=== PATIENT | female | born 1990 | race African-American/Black ===

== ENCOUNTER → 2021-01-23 01:10 | Outpatient (CLI) | payer SELFPAY ==
[2021-01-23 17:52] LABS: SARS-CoV-2 RNA PCR Negative
== END ==
PROVIDERS: PCP Internal Medicine; Visit Provider Internal Medicine Gastroenterology
DX: Z01.812 Encounter for preprocedural laboratory examination (principal); Z20.822 Contact with and (suspected) exposure to COVID-19
CPT/HCPCS: C9803; U0003; U0005

== ENCOUNTER 2021-01-27 03:00 | Day surgery (SDC) | payer OTHER, SELFPAY ==
[2021-01-18 14:21] VITALS: BMI 29.7
[2021-01-27 10:16] VITALS: BP 121/83; PULSE 72; RESP 18; TEMP 36.4; O2SAT 99; BMI 30.5
[2021-01-27] MEDS: LACTATED RINGERS 1,000 ML 150 ML IV CONT (10:36)
--- NOTE | 2021-01-27 10:40 | WPDANESEPPF ---
Anes - Initial Pre Proc Eval Procedure: Operation Date: 01/27/21 11:00 Proposed Procedures p Esophagogastroduodenoscopy - Damon Scott MD Date/Time: 01/27/21 10:40 Surgeon: Damon Scott MD Pre Op Diagnosis: GERD Patient Data Age: 30 Gender: F Height: 1.57 m Weight: 75.8 kg Last Vital Signs Temp 36.4 C 01/27/21 10:16 Pulse 72 01/27/21 10:16 Resp 18 01/27/21 10:16 BP 121/83 01/27/21 10:16 Pulse Ox 99 01/27/21 10:16 Allergies Allergy/AdvReac Type Severity Reaction Status Date / Time No Known Allergies Allergy Verified 01/27/21 10:11 Home Medications Medication Instructions Recorded Confirmed Type omeprazole 20 mg PO DAILY 01/18/21 01/27/21 History Patient hx anesthesia problems: none Family hx anesthesia problems: none [facility] Past Medical History Medical History (Updated 01/27/21 @ 10:40 by Tony Henderson MD) Obesity Social History Social History Alcohol use details: MODERATELY ON THE WEEKEND Living arrangements: alone Gender identity (if verbalized by the patient): Female Spiritual care concerns: No Anes - Eval Final PreProcedure Day of Procedure 01/27/21 10:40 Patient weight: obese Heart: regular rate and rhythm Lungs: clear to auscultation Airway: Mallampati scale class II Neurological: alert and oriented Last oral intake: >/= 8 hours ASA classification: II Emergent: no Anesthetic plan: proceed Anesthesia type and monitoring: general GIVS and standard monitoring Informed Consent: The patient's anesthetic plan and its attendant risks and benefits were discussed with the patient/family/POA. Questions were solicited and answers provided to the satisfaction of the patient/family/POA.
--- NOTE | 2021-01-27 10:53 | PM.HPGS ---
History of Present Illness History of Present Illness Consent: Risks, benefits, and alternatives have been discussed and questions answered. Patient agrees to proceed with procedure. Chief complaint: GERD Narrative: Chinyere Dean is a 30 year old female Who has been having discomfort in the left upper quadrant of her abdomen for the past couple of years. Generally this comes on after she eats. She has not have nausea vomiting heartburn or dysphagia. She is taking omeprazole 20 mg per day. Review of Systems Review of Systems: All systems reviewed & are unremarkable except as noted in HPI and below PMFSH Past Medical History Medical History Obesity Social History Social History Alcohol use details: MODERATELY ON THE WEEKEND Living arrangements: alone Gender identity (if verbalized by the patient): Female Spiritual care concerns: No Meds Home Medications and Allergies Home Medications Medication Instructions Recorded Confirmed Type omeprazole 20 mg PO DAILY 01/18/21 01/27/21 History Allergies Allergy/AdvReac Type Severity Reaction Status Date / Time No Known Allergies Allergy Verified 01/27/21 10:11 Vital Signs Vital Signs - 24 hr 01/27/21 10:16 Temperature 36.4 C Pulse Rate 72 Respiratory Rate 18 Blood Pressure 121/83 Pulse Oximetry 99 Exam Const: General: cooperative and alert Resp: Auscultation: clear to auscultation bilaterally Cardio: Rate: regular rate Rhythm: regular rhythm GI: Inspection: normal to inspection GI Palp: No abdominal tenderness and Yes No hepatosplenomegaly present Assessment and Plan Assessment and plan (1) Left upper quadrant pain: Code(s): R10.12 - Left upper quadrant pain Status: Acute Additional Plan EGD with possible biopsy or dilatation or cautery.
[2021-01-27] MEDS: BENZOCAINE (*SP) 60 ML SPRAY CAN (HURRICAINE) 1 SPRAY MUCOUS MEM (11:04)
[2021-01-27 11:14] VITALS: BP 86/57; PULSE 76; RESP 16; O2SAT 100
[2021-01-27 11:24] VITALS: BP 103/63; PULSE 73; RESP 20; O2SAT 100
[2021-01-27 11:34] VITALS: BP 104/70; PULSE 67; RESP 22; O2SAT 98
== END 2021-01-27 11:43 | disposition home or self-care (01) ==
PROVIDERS: PCP Internal Medicine; Visit Provider Internal Medicine Gastroenterology
PROC: 0DJ08ZZ Inspection of Upper Intestinal Tract, Via Natural or Artificial Opening Endoscopic (ICD-10-PCS; CPT 43235; principal; 2021-01-27 11:00)
DX: R10.12 Left upper quadrant pain (principal); K21.9 Gastro-esophageal reflux disease without esophagitis; E66.9 Obesity, unspecified; Z68.30 Body mass index [BMI] 30.0-30.9, adult
CPT/HCPCS: 43239; 87081; J2704; J7120

== ENCOUNTER 2022-11-30 09:49 | Outpatient (CLI) | payer BC, MEDICAID, SELFPAY ==
--- NOTE | ~2022-11-30 | US_ITS ---
EXAMINATION: US OB <=14 wk fetus w TV DATE: 11/30/2022 11:56 INDICATION: Gestational dating. viability. TECHNIQUE: Real-time transabdominal and transvaginal obstetric ultrasound. FINDINGS: No prior studies for comparison. The uterus measures 9.7 x 6 x 8.1 cm. There is an intrauterine gestational sac, with pole ident ified. The crown rump length measures 1.68 cm, which correlates with a estimated gestational age of 8 weeks 1 day. heart tones are identified measuring 171 BPM. There is a uterine fibroid at th e fundus measuring 4.7 cm. The ovaries are within normal limits. IMPRESSION: 1. SL IUP with an EGA of 8 weeks, 1 days (EDC by current ultrasound of 07/11/2023). 2: Uterine fibroid measuring 4.7 cm at the fundus. Reviewed, dictated and finalized at location [] IMPRESSION: 1. SL IUP with an EGA of 8 weeks, 1 days (EDC by current ultrasound of ). 2: Uterine fibroid measuring 4.7 cm at the fundus.
== END 2022-11-30 09:50 | disposition home or self-care (01) ==
PROVIDERS: Visit Provider Registered Nurse
DX: Z34.91 Encounter for supervision of normal pregnancy, unspecified, first trimester (principal); Z3A.08 8 weeks gestation of pregnancy; D25.9 Leiomyoma of uterus, unspecified
CPT/HCPCS: 76801; 76817

== ENCOUNTER 2023-03-17 16:11 | Observation (INO) | payer BC, MEDICAID, SELFPAY ==
--- NOTE | ~2023-03-17 | US_ITS ---
EXAMINATION: 1. US OB limited 2. US OB transvaginal DATE: 03/17/2023 17:45 INDICATION: Abdominal pain. Second trimester. TECHNIQUE: Real-time transabdominal and transvaginal ultrasound of the pelvis was performed. COMPARISON: Ultrasound 08/02/2022 FINDINGS: Transabdominal images demonstrate is a single fetus in breech presentation. The placenta is anterior . heart rate is 150 beats per minute (bpm). The amniotic fluid index is 17.8 cm cm, which is no rmal. There is a 5.8 cm uterine fibroid. Transvaginal images demonstrate a cervical length of 4.1 cm, which is normal. IMPRESSION: 1. Single living fetus in breech presentation. 2. Uterine fibroid. Reviewed, dictated and finalized at location E. IMPRESSION: 1. Single living fetus in breech presentation. 2. Uterine fibroid.
[2023-03-17 16:40] VITALS: BMI 35.0
--- NOTE | 2023-03-17 16:40 | LDADM ---
This patient, Chinyere Dean, was admitted to OB Post 116 on 03/17/23 at 16:11. Plans for labor, pain management and were discussed with patient. Patient/family oriented to hospital policies and general routines including ID bracelet, bed and alarms, visiting hours, pain management, procedures, bathroom and other care routines, personal items, smoking policy, room service/diet and guest tray routines, infant security routines, and visiting hours. Patient/Family are encouraged to report perceived risks to care and to ask questions if they do not understand what they are told or what they should do. See OBIX for further documentation.
[2023-03-17 16:46] VITALS: BP 109/71; PULSE 90
--- NOTE | 2023-03-17 17:02 | PC.NURSE ---
Dr. Jimenez notified of patient's symptoms and NST. Provider viewed at home. Orders received to give 1g Tylenol and ultrasound of cervical length and THEO.
--- NOTE | 2023-03-17 17:11 | PC.NURSE ---
Patient declines tylenol at this time.
--- NOTE | 2023-03-17 18:06 | PC.NURSE ---
Dr. Jimenez notified of ultrasound results. Okay to discharge.
--- NOTE | 2023-03-20 09:07 | PM.OBTRLD ---
OB - Triage/Final Diagnosis Visit Information Comments/Additional reasons for admission: I have assessed the risk for this patient, Chinyere Christian Dean, and determined that she would benefit from observation care. Final Diagnosis (1) Abdominal pain affecting : Code(s): O26.899 - Other specified related conditions, unspecified trimester; R10.9 - Unspecified abdominal pain Status: Acute (2) Uterine fibroid: Code(s): D25.9 - Leiomyoma of uterus, unspecified Status: Acute
== END 2023-03-17 18:18 | disposition home or self-care (01) ==
PROVIDERS: Admitting Provider Obstetrics & Gynecology; Visit Provider Obstetrics & Gynecology
DX: O26.893 Other specified pregnancy related conditions, third trimester (principal); R10.9 Unspecified abdominal pain; O34.12 Maternal care for benign tumor of corpus uteri, second trimester; Z3A.23 23 weeks gestation of pregnancy
CPT/HCPCS: 76815; 76817; G0378; G0379

== ENCOUNTER 2023-07-12 16:47 | Inpatient (IN) | payer MEDICAID, SELFPAY ==
[2023-07-12] VITALS (7 sets, daily range): BP systolic 118–146; BP diastolic 47–93; PULSE 104–110; RESP 16; TEMP 36.2–36.3; O2SAT 99; BMI 36.6
--- NOTE | 2023-07-12 17:28 | LDADM ---
This patient, Chinyere Dean, was admitted to Labor/Delivery/Recovery 103 on 07/12/23 at 16:47. Plans for labor, pain management and were discussed with patient. Patient/family oriented to hospital policies and general routines including ID bracelet, bed and alarms, visiting hours, pain management, procedures, bathroom and other care routines, personal items, smoking policy, room service/diet and guest tray routines, security routines, and visiting hours. Patient/Family are encouraged to report perceived risks to care and to ask questions if they do not understand what they are told or what they should do. See OBIX for further documentation.
[2023-07-12 17:31] LABS: Basophils Percent Auto 0.4 % (0.2-1.2); Eosinophils Absolute Auto 0.1 K/mm3 (0-0.3); Eosinophils Percent Auto 0.5 % (0-4.4); Hematocrit 36.9 % (37.0-47.0); Hemoglobin 11.8 g/dL (12.0-15.0); Immature Granulocyte Absolute 0.22 K/mm3 (0.00-0.031); Immature Granulocyte Percent A 2.2 % (0-0.5); Lymphocytes Absolute Auto 1.62 K/mm3 (0.9-3.2); Lymphocytes Percent Auto 16.6 % (18.3-44.2); Mean Corpuscular Hemoglobin 29.6 pg (26-34); Mean Corpuscular Volume 92.7 fl (80-100); Mean Platelet Volume 10.2 fl (7.4-10.4); Monocytes Absolute Auto 0.7 K/mm3 (0.1-0.6); Monocytes Percent Auto 6.6 % (2.6-8.5); Neutrophils Absolute Auto 7.2 K/mm3 (1.3-6.7); Neutrophils Percent Auto 73.7 % (45.5-73.1); Nucleated Red Blood Cells Perc 0.3 % (0.0-0.2); Platelet Count Result 235 k/mm3 (150-375); Red Blood Count 3.98 M/mm3 (4.2-5.4); White Blood Count 9.8 K/mm3 (4.5-10.0)
--- NOTE | 2023-07-12 20:57 | WPDANESEPPF ---
Anes - Initial Pre Proc Eval Procedure: Labor epidural Date/Time: 07/12/23 20:57 Surgeon: Saul Magallon MD Pre Op Diagnosis: Labor pain Pre Op Diagnosis: IOL Patient Data Age: 32 Gender: F Height: 1.57 m Weight: 90.9 kg Last Vital Signs Temp 36.2 C L 07/12/23 18:30 Pulse 106 H 07/12/23 19:01 Resp 16 07/12/23 17:50 BP 118/66 07/12/23 19:01 Pulse Ox 99 07/12/23 17:25 O2 Del Method Room Air 07/12/23 17:27 Allergies Allergy/AdvReac Type Severity Reaction Status Date / Time shellfish derived AdvReac Gastrointestinal Verified 07/12/23 17:35 Upset Home Medications Medication Instructions Recorded Confirmed Type prenat.vits,lauren,coo-[id number]-nllhc 1 tablet PO DAILY 09/02/22 07/12/23 History ferrous sulfate 325 mg (65 mg 325 mg PO DAILY 04/20/23 07/12/23 History iron) tablet Laboratory Tests 07/12/23 17:06 WBC 9.8 K/mm3 (4.5-10.0) RBC 3.98 L M/mm3 (4.2-5.4) Hgb 11.8 L g/dL (12.0-15.0) Hct 36.9 L % (37.0-47.0) MCV 92.7 fl (80-100) MCH 29.6 pg (26-34) MCHC 32.0 g/dl (32-36) RDW 15.0 H % (11.5-14.5) Plt Count 235 k/mm3 (150-375) MPV 10.2 fl (7.4-10.4) Immature Gran % (Auto) 2.2 H % (0-0.5) Neut % (Auto) 73.7 H % (45.5-73.1) Lymph % (Auto) 16.6 L % (18.3-44.2) [place] % (Auto) 6.6 % (2.6-8.5) Eos % (Auto) 0.5 % (0-4.4) Baso % (Auto) 0.4 % (0.2-1.2) Lymph # (Auto) 1.62 K/mm3 (0.9-3.2) [place] # (Auto) 0.7 H K/mm3 (0.1-0.6) Eos # (Auto) 0.1 K/mm3 (0-0.3) Baso # (Auto) 0.0 K/mm3 (0.0-0.1) Abs Immat Gran (auto) 0.22 H K/mm3 (0.00-0.031) Absolute Neuts (auto) 7.2 H K/mm3 (1.3-6.7) Absolute Nucleated RBC 0.0 K/mm3 (0.0-0.012) Nucleated RBC % 0.3 H % (0.0-0.2) RPR Pending Blood Type O Positive Antibody Screen Negative Patient hx anesthesia problems: none Family hx anesthesia problems: none Results Review: All pre-operative results and documents have been reviewed as part of the pre-operative evaluation. [facility] Past Medical History Medical History Fibroid Obesity Family History Family History Sibling Alcoholism Mother Diabetes mellitus Hypertension Social History Social History Smoking status: Never smoker Alcohol intake: never Alcohol use details: Not since Substance use: never Do You Feel Safe in your Home?: Yes Lack of Transportation: No Lack of Food: Never True Current Housing: I Have Housing Concerned About Future Housing: No Difficulty Paying Gas/Electric Bills: No Difficulty Paying for Meds: No Currently Unemployed: No Education: Master's Degree or Higher Difficulty w/ Childcare or Family Care: No Living arrangements: with family Occupation/Education: occupation Gender identity (if verbalized by the patient): Female Sexual Orientation (if Verbalized by the Patient): Straight or Heterosexual Spiritual care concerns: No Agree to blood products: Yes Anes - Eval Final PreProcedure Day of Procedure 07/12/23 20:57 Results Review: All pre-operative results and documents have been reviewed as part of the pre-operative evaluation. Informed Consent: The patient's anesthetic plan and its attendant risks and benefits were discussed with the patient/family/POA. Questions were solicited and answers provided to the satisfaction of the patient/family/POA.
[2023-07-12] MEDS: DEXTROSE 5%/LACTATED RINGERS 1,000 ML 125 ML IV CONT (21:50)
[2023-07-13] VITALS (231 sets, daily range): BP systolic 58–214; BP diastolic 25–181; PULSE 25–236; TEMP 36.2–38.7; O2SAT 74–100
[2023-07-13] MEDS: DEXTROSE 5%/LACTATED RINGERS 1,000 ML 125 ML IV CONT ×2 (05:03→12:41)
[2023-07-13] MEDS: OXYTOCIN 30 UNITS/NS 500 ML 30 UNITS/500 ML BAG IV CONT (09:19)
--- NOTE | 2023-07-13 12:25 | PM.IMHP ---
H&P: HPI History of Present Illness Date/Time: 07/13/23 12:25 Chief Complaint: Medical induction of labor Narrative: She is a 32 y/o G1 at 40 weeks by LMP consistent with first trimester ultrasound. Presents for MIL. PNC significant for 4.5 cm ant fundal fibroid. She has been getting serial ultrasounds for growth. Labs reviewed. GBS neg. Review of Systems Review of Systems: All systems reviewed & are unremarkable except as noted in HPI and below Constitutional: Constitutional: Reports no additional constitutional complaints and Denies headache(s) Eyes: Eyes: Denies spots in vision ENT: Reports system reviewed and no additional complaints, except as documented and Denies headache(s) Cardiovascular: Cardiovascular: Denies chest pain and Denies dyspnea Respiratory: Respiratory: Denies dyspnea Gastrointestinal: Gastrointestinal: Reports no additional gastrointestinal complaints Genitourinary: Genitourinary: Reports amenorrhea Musculoskeletal: Musculoskeletal: Reports no additional musculoskeletal complaints Integumentary/Breasts: Skin/Breast: Denies breast mass and Denies rash Neurologic: Denies headache(s) Psychiatric: Psychiatric: Reports no additional psychiatric complaints [facility] Past Medical History Medical History Fibroid Obesity Family History Family History Sibling Alcoholism Mother Diabetes mellitus Hypertension Social History Social History Smoking status: Never smoker Alcohol intake: never Alcohol use details: Not since Substance use: never Do You Feel Safe in your Home?: Yes Lack of Transportation: No Lack of Food: Never True Current Housing: I Have Housing Concerned About Future Housing: No Difficulty Paying Gas/Electric Bills: No Difficulty Paying for Meds: No Currently Unemployed: No Education: Master's Degree or Higher Difficulty w/ Childcare or Family Care: No Living arrangements: with family Occupation/Education: occupation Gender identity (if verbalized by the patient): Female Sexual Orientation (if Verbalized by the Patient): Straight or Heterosexual Spiritual care concerns: No Agree to blood products: Yes Meds Home Medications and Allergies Home Medications Medication Instructions Recorded Confirmed Type prenat.vits,lauren,agl-pqwh-rdjou 1 tablet PO DAILY 09/02/22 07/12/23 History ferrous sulfate 325 mg (65 mg 325 mg PO DAILY 04/20/23 07/12/23 History iron) tablet Allergies Allergy/AdvReac Type Severity Reaction Status Date / Time shellfish derived AdvReac Gastrointestinal Verified 07/12/23 17:35 Upset Vital Signs Vital Signs - 24 hr 07/12/23 17:27 07/12/23 17:25 07/12/23 17:50 Temperature 97.3 F L Pulse Rate 104 H Respiratory Rate 16 Blood Pressure 130/77 Pulse Oximetry 99 Oxygen Delivery Room Air 07/12/23 18:00 07/12/23 18:30 07/12/23 19:01 Temperature 97.2 F L Pulse Rate 110 H 106 H Respiratory Rate Blood Pressure 135/93 H 118/66 Pulse Oximetry Oxygen Delivery 07/12/23 22:30 07/12/23 23:59 07/13/23 00:01 Temperature 97.3 F L Pulse Rate 107 H 114 H Respiratory Rate Blood Pressure 146/47 H 125/47 L Pulse Oximetry Oxygen Delivery 07/13/23 00:30 07/13/23 04:14 07/13/23 04:15 Temperature 98.2 F Pulse Rate 93 Respiratory Rate Blood Pressure 132/80 Pulse Oximetry 99 Oxygen Delivery 07/13/23 04:30 07/13/23 08:18 07/13/23 08:30 Temperature 98.8 F Pulse Rate 88 91 Respiratory Rate Blood Pressure 125/69 117/77 Pulse Oximetry Oxygen Delivery 07/13/23 09:00 07/13/23 09:30 07/13/23 10:00 Temperature 97.5 F L Pulse Rate 100 101 H 111 H Respiratory Rate Blood Pressure 129/67 116/75 129/87 Pulse Oximetry Oxygen Delivery 0
--- NOTE | 2023-07-13 12:31 | P.PNOB_ITS ---
OB - PN: Subj Subjective Date/time seen: 07/13/23 0735 Interval history: fht 140 cat 1 AROM cervix 1.5/60/-2, thick meconium. OB - PN: Obj Data Labs 07/12/23 17:06 Labs: Laboratory Results - last 24 hr 07/12/23 17:06 WBC 9.8 RBC 3.98 L Hgb 11.8 L Hct 36.9 L MCV 92.7 MCH 29.6 MCHC 32.0 RDW 15.0 H Plt Count 235 MPV 10.2 Immature Gran % (Auto) 2.2 H Neut % (Auto) 73.7 H Lymph % (Auto) 16.6 L [place] % (Auto) 6.6 Eos % (Auto) 0.5 Baso % (Auto) 0.4 Lymph # (Auto) 1.62 [place] # (Auto) 0.7 H Eos # (Auto) 0.1 Baso # (Auto) 0.0 Abs Immat Gran (auto) 0.22 H Absolute Neuts (auto) 7.2 H Absolute Nucleated RBC 0.0 Nucleated RBC % 0.3 H Blood Type O Positive Antibody Screen Negative OB - PN A/P Time Spent With Patient Time: Total time spent is greater than 50% in coordination of care (as documented) at patient's floor/unit and/or counseling patient:
[2023-07-13] MEDS: PHENYLEPHRINE 1,000 MCG/10 ML SYRINGE 100 MCG IV PUSH ×3 (13:19→14:06)
[2023-07-13] MEDS: LACTATED RINGERS 1,000 ML 125 ML IV CONT ×2 (14:08→17:24)
[2023-07-13 15:45] LABS: Rapid Plasma Reagin Non-Reactive (NonReactive)
[2023-07-13] MEDS: ONDANSETRON INJ 4 MG/2 ML VIAL IV PUSH (19:26)
[2023-07-13] MEDS: AMPICILLIN 2 GM/NS 100 ML 2 GM/100 ML BAG IVPB (21:41)
[2023-07-13] MEDS: ACETAMINOPHEN 500 MG TABLET 1000 MG PO (21:43)
[2023-07-13] MEDS: OXYTOCIN 30 UNITS/NS 500 ML 30 UNITS/500 ML BAG 125 UNITS IV CONT (23:51)
[2023-07-13] MEDS: miSOPROStol 200 MCG TABLET 800 MCG RECTAL (23:55)
[2023-07-14] VITALS (32 sets, daily range): BP systolic 78–166; BP diastolic 51–101; PULSE 94–150; RESP 16–18; TEMP 36.7–37.2; O2SAT 95–100
--- NOTE | 2023-07-14 00:08 | PM.OBPRVD ---
OB - Vaginal Delivery Note Procedure Delivery date: 07/14/23 Events: Other (Fundal fibroid) Intrapartal Events: Chorioamnionitis Induction method: Per Pitocin Protocol Delivery augmentation: Rupture of Membranes and Pitocin Delivery monitor: External FHT and Internal Uterine Route of delivery: Laceration Description: Perineal - 2nd Degree and Vaginal (bilateral vaginal laceration) Delivery repair: vicryl (3.0 vicryl) Specimen: Yes (placenta and cord) Quantitative Blood Loss (ml): 350 Anesthesia type: Epidural Disposition: Floor Complications: No immediate complications Narrative: She was admitted for [facility] for postdates. She did not get cervidil due to intermittent late decelerations. The am she had AROM thick meconium. Pitocin was subsequently started. She did get an epidural on request. IUPC was placed for improved assessment of contractions. She had an episode of late decelerations and also had hypotension after epidural. Pitocin was stopped also. Once blood pressures improved then decelerations resolved. Tracing Cat 2 and pitocin restarted. She did develop a fever of 101 and Ampicillin and Tylenol started. tracing showed tachycardia. She did progress to complete. She pushed for approximately 30 min and delivered a male . Peds available due to thick meconium. was placed on maternal abdomen and cord doubly clamped and cut and then placed at warmer. Cord blood and gases obtained. Pitocin started. Placenta delivered spontaneously and intact. She sustained bilateral vaginal tears and second degree perineal laceration repaired with 3.0 vicryl. She was getting intermittent hypotonia and clot cleared from lower uterine segment twice. She was given Cytotec 800mcg rectally. Bleeding improved. Will add gent clinda /amp . Baby Date of : 07/13/23 Time of : 22:23 Weeks of gestation at delivery: 40 Infant gender: Male Weight (pounds): 8 Weight (ounces): 12 presentation: vertex position: Left Occiput Anterior Placenta delivery description: Expressed Cord Vessel Description: 3 Vessels and Clamped/Cut score one minute: 2 score five minutes: 8 score ten minutes: 9 AMG Delivery Billing Delivery Delivery: Delivery Charge
[2023-07-14 01:14] LABS: Estimated CRCL calculation 139 ml/min; Estimated Glomerular Filt Rate > 60
[2023-07-14] MEDS: GENTAMICIN SULFATE INJ 455 MG in DEXTROSE 5% 100 ML 100 MG IVPB (01:24)
[2023-07-14] MEDS: WITCH HAZEL 40 PADS 1 PAD TOPICAL (02:48)
[2023-07-14] MEDS: BENZOCAINE 20% AER SPR (*SP) 56 GM CAN 1 SPRAY TOPICAL (02:48)
[2023-07-14] MEDS: IBUPROFEN 600 MG TABLET PO ×3 (02:49→22:54)
--- NOTE | 2023-07-14 02:55 | PC.NURSE ---
Patient transferred to post room # 285 via (W/C ). Support person present. Oriented to unit, room, information board, rooming in, admission packet and security measures. Patient verbalizes understanding.
[2023-07-14] MEDS: CLINDAMYCIN 900 MG/D5W 50 ML 900 MG/50 ML PIGGYBACK 50 MG IVPB ×3 (03:54→21:33)
[2023-07-14] MEDS: ACETAMINOPHEN 325 MG TABLET 650 MG PO (07:57)
[2023-07-14] MEDS: MULTIVIT/MIN/PREN/FOL AC/IRON TABLET 1 TAB PO (07:57)
--- NOTE | 2023-07-14 10:24 | WPDANLDPN2 ---
Anes-Prog Note L&D Date/Time: 07/14/23 10:24 Comfortable throughout: labor and delivery Neuraxial method: epidural Epidural/Spinal procedure site: clean & non-tender Neuro status: Neuro function grossly intact. Cardiovascular status: normal Respiratory status: normal Airway patency: baseline Mental status: baseline Post-Op hydration status: normal Vital Signs: Last Vital Signs Temp 36.7 C 07/14/23 07:55 Pulse 101 H 07/14/23 07:55 Resp 18 07/14/23 07:55 BP 113/66 07/14/23 07:55 Pulse Ox 100 07/14/23 07:55 O2 Del Method Room Air 07/14/23 03:12 Pain score (VAS): 3/10 I/O: Intake & Output 07/13/23 07/14/23 07/14/23 23:59 07:59 15:59 Intake Total 1000 Balance 1000 Post-procedural complaints: none and pruritis mild, no treatment Patient feedback: Patient satisfied with anesthetic care.
--- NOTE | 2023-07-14 12:08 | PM.OBPNVD ---
OB - PN: Subj Subjective Date/time seen: 07/14/23 12:08 Patient comments: tolerating diet and other (having moderate perineal pain) [place] baby status: doing well [place] feeding status: pumping and bottle feeding Narrative: PP day 1 Doing well. Reports some vaginal pain, taking motrin and tylenol. No fevers. Will continue abx through this evening. Will get H&H today. OB - PN: Obj Data Labs 07/12/23 17:06 07/14/23 00:31 Labs: Laboratory Results - last 24 hr 07/12/23 07/14/23 17:06 00:31 Creatinine 0.50 L Estim Creat Clear Calc 139 Estimated GFR > 60 RPR Non-reactive OB - PN A/P Plan Plan: routine care Comments: PP day 1. Doing well. Will order [place] for pain management. Recommend sitz bath prn. Will d/c antibiotics after evening dose. H&H today. Time Spent With Patient Time: Total time spent is greater than 50% in coordination of care (as documented) at patient's floor/unit and/or counseling patient: Review of Systems Review of Systems: All systems reviewed & are unremarkable except as noted in HPI and below Cardiovascular: Cardiovascular: Reports no additional cardiovascular complaints Respiratory: Respiratory: Reports no additional respiratory complaints Exam Const: General: cooperative, comfortable and no acute distress Resp: Effort & Inspection: normal respiratory effort and able to speak in complete sentences GI: Inspection: normal to inspection GI Palp: No abdominal tenderness Other: Fundus palpated below U. Non tender : External Female Exam: normal external appearance Other: Fundus below U, firm Extrem: General: normal to inspection, full ROM, no calf tenderness and edema (1+ non pitting) Psych: Affect: normal affect
[2023-07-14 12:27] LABS: Hematocrit 32.8 % (37.0-47.0); Hemoglobin 10.7 g/dL (12.0-15.0)
[2023-07-14 12:44] LABS: Gentamicin Random 0.9 ug/mL (5.0-12.0)
[2023-07-14] MEDS: HYDROcodone/acetaminophen (*CRX) 5-325 MG TABLET 1 TAB PO ×2 (13:54→22:55)
[2023-07-15] MEDS: IBUPROFEN 600 MG TABLET PO (05:08)
--- NOTE | 2023-07-15 07:52 | PM.OBDSVD ---
DS: Admitting Diagnosis Discharge Date 07/15/2023 Admitting Diagnosis DS: Discharge Diagnosis Discharge Diagnosis (1) , delivered: Code(s): O80 - Encounter for full-term uncomplicated delivery Status: Acute OB - DS: Summary Hospital Course Hospital Course: S: Patient tolerating regular diet and activity without difficulty. is going well though slow. Denies fever chills or significant amount of abdominal pain or abnormal bleeding, foul-smelling discharge. O: Vital signs stable and afebrile Abdomen: Positive bowel sounds soft fundus nontender A: Status post vaginal delivery with chorioamnionitis, resolved. P: Discharge home with general instructions, as well as specific instructions due to infectious morbidity during labor OB Procedures : None OB Procedures Intrapartum: Spontaneous Vag Delivery and Other ( chorioamnionitis) OB Procedures: : None Peripartum Data Laceration Description: Perineal - 2nd Degree and Vaginal (bilateral vaginal laceration) Time Spent with Patient Time attestation: Total time spent providing and/or coordinating discharge services: DS: Data Data Completed and Pending Labs on day of discharge: Labs from last 24 hours 07/14/23 12:14 Hgb 10.7 L Hct 32.8 L Random Gentamicin 0.9 L Discharge Plan Discharge Attending physician on discharge: Saul Magallon Consulting providers: Jose Alberto Pink Discharging Clinician: Nguyễn Amaya Patient Disposition: Home, Self-Care Activity: october shower Diet: as tolerated Patient Instructions: Antibiotic Form, Vaginal Delivery (DC) Stand Alone Forms: General Discharge Information Follow-up/Referrals: Saul Magallon MD [Physician] - Discharge Medications: New hydrocodone-acetaminophen 5-325 mg Tablet 1 tablet PO Q4H PRN (Reason: Pain Rated 4-6) Qty: 12 0RF ibuprofen 600 mg Tablet 600 mg PO Q6H PRN (Reason: Cramping) Qty: 20 0RF Continued prenat.vits,lauren,hfp-rele-ccnow Tablet 1 tablet PO DAILY ferrous sulfate 325 mg (65 mg iron) tablet 325 mg PO DAILY Date of admission: 07/12/23 16:47 Primary Care Provider: PHYSICIAN,[facility] Admitting Provider: Saul Magallon Attending physician on admission: Saul Magallon Condition: Stable
[2023-07-15 08:00] VITALS: BP 131/85; PULSE 85; RESP 16; TEMP 36.2; O2SAT 100
[2023-07-15] MEDS: MULTIVIT/MIN/PREN/FOL AC/IRON TABLET 1 TAB PO (09:34)
[2023-07-15] MEDS: HYDROcodone/acetaminophen (*CRX) 5-325 MG TABLET 1 TAB PO ×2 (09:34→13:35)
[2023-07-15] MEDS: DOCUSATE SODIUM 100 MG CAPSULE PO ×2 (09:35→16:12)
--- NOTE | 2023-07-15 12:50 | PC.NURSE ---
Patient viewed the discharge video Mother & Baby Care, The First Two Weeks . Patient was given the opportunity and encouraged to ask questions. Patient verbalized understanding of information shared and has been given the mother/baby guide for home reference.
[2023-07-17 14:10] VITALS: BP 128/89; PULSE 78; RESP 18; TEMP 36.9; O2SAT 100
== END 2023-07-15 16:57 | disposition home or self-care (01) | DRG 560 ==
LOC: ANHOB2 07-15 11:24 → ANHLDR 07-17 12:18 → ANHOB2 07-17 12:18
PROVIDERS: Admitting Provider Obstetrics & Gynecology; Visit Provider Obstetrics & Gynecology
DX: O48.0 Post-term pregnancy (principal); Z37.0 Single live birth; Z3A.40 40 weeks gestation of pregnancy; O41.1230 Chorioamnionitis, third trimester, not applicable or unspecified; O70.1 Second degree perineal laceration during delivery; O77.0 Labor and delivery complicated by meconium in amniotic fluid; O36.8330 Maternal care for abnormalities of the fetal heart rate or rhythm, third trimester, not applicable or unspecified; O62.2 Other uterine inertia; O34.13 Maternal care for benign tumor of corpus uteri, third trimester; D25.9 Leiomyoma of uterus, unspecified
CPT/HCPCS: 36415; 80170; 82565; 85014; 85018; 85025; 86592; 86850; 86900; 86901; 88307; A9270; J0290; J1580; J2371; J2405; J2590; J2795; J7120; J7121

== ENCOUNTER 2024-05-21 16:24 | Outpatient (CLI) | payer OTHER, SELFPAY ==
--- NOTE | ~2024-05-21 | US_ITS ---
EXAMINATION: US OB <=14 wk fetus w TV INDICATION: N91.2 - Amenorrhea, unspecified TECHNIQUE: Sonography of the pelvis was performed by transabdominal technique. COMPARISON: None. RESULT: Uterus: 14.3 x 6.8 x 9.8 cm. Anteverted. Homogenous myometrium. Intrauterine gestational sac: Single present. Embryo: Single present. [place] rump length: 5.46 cm, corresponding gestational age 12 weeks, 0 days. Gestational heart rate: present 163 bpm. Subgestational hematoma: Absent . Right ovary: 4.9 x 1.7 x 2.0 cm. Vascular flow is present. No adnexal mass. Left ovary: 2.8 x 2.4 x 1.9 cm. Vascular flow is present. No adnexal mass. Pelvis free fluid: None. IMPRESSION: Single, live intrauterine gestation. Mild tachycardia to 163 BPM. Estimated Gestational Age: 12 weeks, 0 days by crown rump length. ISSA by ultrasound 12/03/2024. Reviewed, dictated and finalized at location K. [employer] [facility] IMPRESSION: Single, live intrauterine gestation. Mild tachycardia to 163 BPM. Estimated Gestational Age: 12 weeks, 0 days by crown rump length. ISSA by ultra sound 12/03/2024.
== END 2024-05-21 16:25 | disposition home or self-care (01) ==
LOC: ANHIMG 16:26
PROVIDERS: Visit Provider Nurse Practitioner Obstetrics & Gynecology
DX: N91.2 Amenorrhea, unspecified (principal); Z3A.12 12 weeks gestation of pregnancy
CPT/HCPCS: 76801; 76817

== ENCOUNTER 2024-08-28 11:00 | Outpatient (RCR) | payer BC, OTHER, SELFPAY ==
--- NOTE | 2024-07-19 13:20 | OPREHPOC ---
Outpatient Therapy Plan of Care This is a Multidisciplinary Plan of Care that may contain components documented by all disciplines (PT, OT, and ST.) PT Problem 1 PT Problem #1 Knowledge Deficit PT Goal 1 Goal / Goal Update 1. Patient will perform independent HEP Target Visit 2 PT Problem 2 PT Problem #2 Pain PT Goal 1 Goal / Goal Update 1. Patient will report pain 2/10 highest with cooking and cleaning tasks 2. Patient able to do normal activities without taking rest breaks from pain Target Visit 4 PT Problem 3 PT Problem #3 Impaired Strength PT Goal 1 Goal / Goal Update 1. Hip abduction 5/5 alonzo to support spine as progresses
--- NOTE | 2024-07-19 13:20 | PTOPEVAL1 ---
Assessment and note entered by Miryam Mobley DPT Evaluation Information Assessment Status Evaluation ICD-10 Condition Codes (PT) Pain in low back M54.50,Weakness R53.1 Subjective Information Pt is almost 20 weeks . Is having some back pain that starts if she stands too long, squats down, or walks too far. Pain started about 2 months ago. Highest pain 5/10 and lowest 0/10. Is able to do her household activities but sits down to take breaks as needed. Sometimes gets pain in her posterior R knee but is not radiating down her whole leg. Denies n/t. This is patient's second , did have some pain with her first but much later in the . Returns to Dr. Magallon in a few weeks. Patient goal: get an exercise routine and help with the pain Reported Pain Level Pain Score 0: Self Report Assessment PT Clinical Summary The patient is approximately 20 weeks and presenting with low back pain. She presents with SIJ impairments and decreased hip strength which are contributing to her pain and difficulty with tasks requiring standing and walking. She will benefit from therapy to address pain in order to improve function as her progresses. Plan of Care Interventions Gait Training,Hot Pack/Cold Pack,Manual Therapy, Neuro Re-education,Patient/Caregiver Education, Therapeutic Activities,Therapeutic Exercise PT Services Indicated Yes Treatment Frequency and 2-4 visits in 2 months (based on patient's Duration schedule) These treatments will address the objective and functional deficits as defined above. The patient will be advanced safely and appropriately in order for the patient to progress towards his/her prior level of function. Additional exercises will be introduced and as well as a comprehensive home exercise program upon discharge, if needed, ?to ensure carryover of functional gains achieved in the clinic. This treatment plan has been reviewed and agreement upon by the patient.
--- NOTE | 2024-08-28 11:32 | OPREHPOC ---
Outpatient Therapy Plan of Care This is a Multidisciplinary Plan of Care that may contain components documented by all disciplines (PT, OT, and ST.) PT Problem 1 PT Problem #1 Knowledge Deficit PT Goal 1 Goal / Goal Update 1. Patient will perform independent HEP Target Visit 2 Progress Met PT Problem 2 PT Problem #2 Pain PT Goal 1 Goal / Goal Update 1. Patient will report pain 2/10 highest with cooking and cleaning tasks 2. Patient able to do normal activities without taking rest breaks from pain update 08/28/24 1. not met 2. met Target Visit 4 Progress Partially Met PT Problem 3 PT Problem #3 Impaired Strength PT Goal 1 Goal / Goal Update 1. Hip abduction 5/5 alonzo to support spine as progresses update 08/28/24 1. met on R, L to 4+/5 Target Visit 4 Progress Partially Met
--- NOTE | 2024-08-28 11:32 | PTOPPROGNS ---
Assessment and note entered by Miryam Mobley DPT Evaluation Information Assessment Status Progress ICD-10 Condition Codes (PT) Pain in low back M54.50,Weakness R53.1 Subjective Information Pt reports improvements with therapy and is able to stand for longer and do stairs at work with less difficulty. Highest pain 5/10 and lowest 0/10 . Is mostly noticing it rolling over in bed. Does have to take breaks during household activities but due to fatigue, not pain. Pt returns to OB next week. Pt is 25 weeks currently. Assessment PT Clinical Summary The patient has made good progress in therapy and reports decreased pain overall and improvements in her ability to navigate stairs at work. She demonstrates improved bilateral hip abduction strength. Due to her progress, patient would like to continue HEP independently at this time. She has been educated to follow up with PT if her pain increases over the next 2-4 weeks or her OB-OUTPATIENT COORDINATOR as needed. Plan of Care Interventions Gait Training,Hot Pack/Cold Pack,Manual Therapy, Neuro Re-education,Patient/Caregiver Education, Therapeutic Activities,Therapeutic Exercise PT Services Indicated No Treatment Frequency and hold therapy, pending discharge in 2-4 weeks Duration These treatments will address the objective and functional deficits as defined above. The patient will be advanced safely and appropriately in order for the patient to progress towards his/her prior level of function. Additional exercises will be introduced and as well as a comprehensive home exercise program upon discharge, if needed, ?to ensure carryover of functional gains achieved in the clinic. This treatment plan has been reviewed and agreement upon by the patient.
--- NOTE | 2024-09-25 09:23 | PTOPDC ---
Assessment and note entered by Miryam Mobley DPT Evaluation Information Assessment Status Discharge - Pt Not Present ICD-10 Condition Codes (PT) Pain in low back M54.50,Weakness R53.1 Subjective Information - Assessment PT Clinical Summary Patient has not needed to schedule further therapy - her case will be discharged this date. Plan of Care PT Services Indicated No
== END 2024-09-25 11:53 | disposition home or self-care (01) ==
LOC: ANHPT 11:00
PROVIDERS: Visit Provider Obstetrics & Gynecology
DX: O99.891 Other specified diseases and conditions complicating pregnancy (principal); M54.9 Dorsalgia, unspecified; M25.559 Pain in unspecified hip
CPT/HCPCS: 97110; 97112; 97140; 97161; 97530

== ENCOUNTER 2024-10-02 15:12 | Outpatient (RCR) | payer BC, MEDICAID, SELFPAY ==
[2024-10-02 16:14] VITALS: BP 122/66; PULSE 94
== END 2024-12-14 09:54 | disposition other institution (70) ==
LOC: ANHOBOP 15:12
PROVIDERS: Visit Provider Obstetrics & Gynecology
DX: O36.8330 Maternal care for abnormalities of the fetal heart rate or rhythm, third trimester, not applicable or unspecified (principal)
CPT/HCPCS: 59025

== ENCOUNTER 2024-11-27 11:15 | Inpatient (IN) | payer BC, MEDICAID, SELFPAY ==
[2024-11-27] VITALS (103 sets, daily range): BP systolic 95–180; BP diastolic 42–110; PULSE 25–130; RESP 16; TEMP 36.1–36.8; O2SAT 77–100; BMI 40.3
--- NOTE | 2024-11-27 11:54 | P.HP_ITS ---
H&P: HPI History of Present Illness Date/Time: 11/27/24 11:54 Chief Complaint: leaking of fluid Narrative: patient is a 34-year-old at 38 weeks with an EDC of 12/07/2024. Presented with complaints of leaking of fluid, clear at 9:30 a.m. Spontaneous rupture of membranes confirmed. Clear. Irregular contractions. course significant for advanced maternal age also history of short interval has had normal growth. Review of Systems Review of Systems: All systems reviewed & are unremarkable except as noted in HPI and below Constitutional: Constitutional: Reports no additional constitutional complaints and Denies headache(s) Eyes: Eyes: Denies spots in vision ENT: Reports system reviewed and no additional complaints, except as documented and Denies headache(s) Cardiovascular: Cardiovascular: Denies chest pain and Denies dyspnea Respiratory: Respiratory: Denies dyspnea Gastrointestinal: Gastrointestinal: Reports no additional gastrointestinal complaints Genitourinary: Genitourinary: Reports amenorrhea Musculoskeletal: Musculoskeletal: Reports no additional musculoskeletal complaints Integumentary/Breasts: Skin/Breast: Denies breast mass and Denies rash Neurologic: Denies headache(s) Psychiatric: Psychiatric: Reports no additional psychiatric complaints [facility] Past Medical History Medical History Fibroid Obesity Family History Family History Sibling Alcoholism Mother Diabetes mellitus Hypertension Social History Social History Smoking status: Never smoker Alcohol intake: never Alcohol use details: Not since Substance use: never Do You Feel Safe in your Home?: Yes Lack of Transportation: No Lack of Food: Never True Current Housing: I Have Housing Concerned About Future Housing: No Difficulty Paying Gas/Electric Bills: No Difficulty Paying for Meds: No Currently Unemployed: No Education: Master's Degree or Higher Difficulty w/ Childcare or Family Care: No Living arrangements: with family Occupation/Education: occupation Gender identity (if verbalized by the patient): Female Sexual Orientation (if Verbalized by the Patient): Straight or Heterosexual Spiritual care concerns: No Agree to blood products: Yes Meds Home Medications and Allergies Home Medications ?Medication ?Instructions ?Recorded ?Confirmed ?Type vitamin#30 30 mg iron-10 cap PO 05/30/24 11/26/24 History mg iron-folic acid 1 mg-omg3 capsule Allergies Allergy/AdvReac Type Severity Reaction Status Date / Time shellfish derived AdvReac Gastrointestinal Verified 11/26/24 13:56 Upset Exam Const: General: no acute distress Eyes: General: appearance normal, both eyes and all related structures Resp: Effort & Inspection: normal respiratory effort Cardio: Rate: regular rate GI: Other: Gravid no fundal tenderness no right upper quadrant pain : Other: Cervix 2/ 50/ -3 Skin: General skin exam: no rashes or lesions noted Neuro: Cognition (Neuro): normal cognition Extrem: General: normal to inspection Psych: Mental Status: mental status grossly normal Assessment and Plan Assessment and plan (1) Spontaneous rupture of membranes: Status: Acute Assessment and Plan: 1. Admit 2. Counseled on Pitocin augmentation.
[2024-11-27 12:01] LABS: Basophils Percent Auto 0.4 % (0.2-1.2); Eosinophils Percent Auto 0.5 % (0-4.4); Hematocrit 34.2 % (37.0-47.0); Hemoglobin 10.7 g/dL (12.0-15.0); Immature Granulocyte Absolute 0.06 K/mm3 (0.00-0.031); Immature Granulocyte Percent A 0.7 % (0-0.5); Lymphocytes Absolute Auto 1.66 K/mm3 (0.9-3.2); Lymphocytes Percent Auto 20.4 % (18.3-44.2); Mean Corpuscular HGB Conc 31.3 g/dl (32-36); Mean Corpuscular Hemoglobin 26.6 pg (26-34); Mean Corpuscular Volume 85.1 fl (80-100); Monocytes Absolute Auto 0.4 K/mm3 (0.1-0.6); Monocytes Percent Auto 4.4 % (2.6-8.5); Neutrophils Percent Auto 73.6 % (45.5-73.1); Platelet Count Result 284 k/mm3 (150-375); Red Blood Count 4.02 M/mm3 (4.2-5.4); Red Cell Distribution Width 15.6 % (11.5-14.5); White Blood Count 8.2 K/mm3 (4.5-10.0)
--- NOTE | 2024-11-27 12:37 | LDADM ---
This patient, Chinyere Dean, was admitted to Labor/Delivery/Recovery 106 on 11/27/24 at 11:15. Plans for labor, pain management and were discussed with patient. Patient/family oriented to hospital policies and general routines including ID bracelet, bed and alarms, visiting hours, pain management, procedures, bathroom and other care routines, personal items, smoking policy, room service/diet and guest tray routines, security routines, and visiting hours. Patient/Family are encouraged to report perceived risks to care and to ask questions if they do not understand what they are told or what they should do. See OBIX for further documentation.
[2024-11-27 12:54] LABS: OBXCEM ROM Plus Positive (Negative)
[2024-11-27 12:54] LABS: Syphilis IgG/IgM Antibody Non-Reactive (Nonreactive)
--- OUTSIDE RECORDS SUMMARY | 2024-11-27 13:24 | XMS_ITS | Clinical Summary ---
Author Organization [facility] Address [address] [place] [address] Care Team Providers Care Programmer Or Analyst Name Role Phone Unavailable Primary Care Provider Unavailabl e Source Comments [facility],non-owned Affiliates and Associated Physician Practices is amultiple site organization consisting of ambulatory clinics and hospital sitesin [place], [place], [place] and [place]. This disclosure is being madepursuant to the Care Everywhere program and may not contain all information available regarding this patient. Last updated 18.[facility] Allergies Active Allergy Reactions Criticality Noted Date Comments Shellfish Allergy Unknown 10/21/2024 Encounters Date Type Department Care Team Description 11/19/2024 1:45 PM CDT - 11/19/2024 11:59 PM CDT Hospital Encounter [facility] [address] [place] [id number] James Antonio MD Discharge Disposition: Home or Self Care 11/18/2024 Telephone [facility]ly [facility] [address] [place] [phone] Anni Samuel RN Future Appointment (Jeremías called to see if patient could get her NST tomorrow with her growth US for AMA requested by Leah Carballo NP. 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 Gender Identity Not on file Sexual Orientation Not on file Plan of Treatment Health Maintenance Due Date Last Done Comments PAP SMEAR 1990 HIV SCREENING 09/16/2003 DTAP/TDAP/TD VACCINES (1 - Tdap) 09/16/2007 HEPATITIS B VACCINE (1 of 3 - 19+ 3-dose series) 09/16/2007 COVID-19 VACCINE (2023-2 5 season) 2024 01/20/2021, 12/30/2020 DEPRESSION SCREENING 06/12/2024 OB-ONE HOUR GLUCOSE 08/31/2024 OB-TDAP CURRENT 09/07/20242022, 03/12/2020 OB-RHOGAM INJECTION 09/14/2024 OB-GROUP B STREP SCREEN 11/02/2024 INFLUENZA VACCINE (Season Ended) 2025 ZOSTER VACCINE (1 of 2) 2038 HEPATITIS C SCREENING Completed 05/18/2023 HIB VACCINE Aged Out No longer eligi ble based on patient's age to complete this topic HPV VACCINE Aged Out No longer eligi ble based on patient's age to complete this topic MENINGOCOCCAL (Group B) VACCINE SHARED DECISION-MAKING Aged Out No longer eligible based on patient's age to complete this topic MENINGOCOCCAL GROUPS A/C/Y/W VACCINE Aged Out No longer eligible b ased on patient's age to complete this topic PNEUMOCOCCAL VACCINE Aged Out No long er eligible based on patient's age to complete this topic Respiratory Syncytial Virus (RSV) Vaccine Pt: or over 60 yrs (No Doses Required) Completed Procedures Procedure Name Priority Date/Time Associated Diagnosis Comments SONOGRAM - COMPLETE Routine 11/19/2024 1 :52 PM CDT Multigravida of advanced maternal age in third trimester (HCC) Encounter for ultrasound to assess growth (HCC) 37 weeks gestation of (HCC) SONOGRAM - COMPLETE Routine 10/22/2024 1 :09 PM CDT Multigravida of advanced maternal age in third trimester (HCC) Encounter for ultrasound to assess growth ([facility]) Encounter for anatomic survey ([facility]) with 33 completed weeks gestation ([facility]) from Last 3 Months Results * SONOGRAM - COMPLETE (11/19/2024 1:52 PM CDT) Only the most recent of2 resultswithin the time period is included. Linked Results Indication ======== Transfer from [facility], Incomplete anatomy & follow-up growth AMA 34 years, Class I obesity History ====== OB History 2. Para 1 [id number] 1. live 2023. Gest. age 40 w + 3 d. Weight 3,968 g. Sex of child: male. Details: Lab Tests Test Date Result Declined Maternal Assessment = Physical Exam Height 157 cm, 5 ft 2 in. Initial weight 83 kg, 183 lb. Initial BMI 33.47 kg/m Method ====== Transabdominal ultrasound. View: Sufficient ========= Joel . Number of fetuses: 1 Dating ====== Date Details Gest. age ISSA LMP 03/02/2024 37 w + 3 d 12/07/2024 Assigned dating based on the LMP, selected on 10/22/2024 37 w + 3 d 12/07/2024 General Evaluation Cardiac activity present. FHR 153 bpm. Presentation: cephalic Placenta: Placental site: posterior Umbilical cord: Cord vessels: 3 vessel cord - previously documented. Insertion site: suboptimal Amniotic Fluid Assessment ===== Amount of AF: normal MVP 4.5 cm. THEO 13.2 cm. Q1 4.2 cm, Q2 4.5 cm, Q3 3.3 cm, Q4 1.3 cm Biophysical Profile 2: breathing movements 2: Gross body movements 2: tone 2: Amniotic fluid volume 01/17 Biophysical profile score Biometry BPD 86.1 mm 34w 5d 6% Hadlock HC 334.8 mm 38w 2d 47% Hadlock AC 336.7 mm 37w 4d 70% Hadlock Femur 68.2 mm 35w 0d 5% Hadlock Humerus 58.5 mm 33w 6d 5% Katharine HC / AC 0.99 Weight Calculation: EFW 3,010 g 40% Hadlock EFW (lb,oz) 6 lb 10 oz EFW by Hadlock ([id number]) appropriate Growth Overview = Exam date GA BPD (mm) HC (mm) AC (mm) FL (mm) HL (mm) EFW (g) 10/22/2024 33w 3d 78.9 6% 304 23% 290.9 42% 64 29% 54.6 18% 2102 31% 11/19/2024 37w 3d 86.1 6% 334.8 47% 336.7 70% 68.2 5% 58.5 5% 3010 40% Anatomy The following structures appear normal: Head / Neck Cranium. Heart / Thorax 4-chamber view. 1-snzxou-jgljbwa view. Abdomen Stomach. Kidneys. Bladder. The following structures could not be adequately visualized: Heart / Thorax 3-vessel view. Abdomen Cord insertion. Genitals. Extremities / Skeleton Right arm. Right hand. Feet. The following structures were documented previously: Head / Neck Lateral ventricles. Choroid plexus. Midline falx. Cavum septi pellucidi. Cerebellum. Cisterna magna. Face Lips. Profile. Nose. Orbits. Heart / Thorax RVOT view. LVOT view. Spine Cervical spine. Thoracic spine. Lumbar spine. Sacral spine. Extremities / Skeleton Left arm. Left hand. Legs. Maternal Structures Uterus Fibroid(s) Size 46 mm x 46 mm x 21 mm. Mean 37.7 mm. Vol 23.267 cm Impression ========= Single, live, intrauterine at 37w 3d The growth & amniotic fluid volume are normal. The biophysical profile is 01/17 (Patient unable to stay for NST) Follow-up ======== Continue weekly NST+BPP Coding ====== Procedures 52202: [place] [address]: Biophysical Profile W/O NST [facility] Anatomical Region Laterality Modality Other 11/19/2024 1:52 PM CDT Saul Brown MD [facility] ORDERABLES Edited Result - Final from Last 3 Months Insurance [facility] [place] [facility] * Guarantor: CHINYERE DEAN Account Type Relation to Patient Date of Phone Billing Address Personal/Family 1990
--- OUTSIDE RECORDS SUMMARY | 2024-11-27 13:24 | XMS_ITS | Referral Summary ---
Author Organization [facility] Address [address] [place] [address] Care Team Providers Care Electrical Lineworker Name Role Phone Muriel Daniel MD Primary Care Provider Saul Magallon MD Unavailable [phone] Allergies No known active allergies Medications No known medications Active Problems Problem Noted Date Diagnosed Date Hepatitis B immune 12/28/2023 Class 1 obesity due to exces s calories with serious comorbidity and body mass index (BMI) of 31.0 to 31.9 in adult 12/28/2023 Immunizations Immunization Administration Dates Next Due Influenza, Unspecified 06/12/2023(Deferr ed: Patient Refused),06/12/2022(Deferred: Patient Refused) Tdap 05/31/2023,03/12/2020 Social History Tobacco Use Types Packs/Day Years Used Date Smoking Tobacco: Never Smokeless Tobacco: Never Tobacco Cessation:Counseling Given: Not Answered AUDIT-C Answer Date Recorded Q1: How often do you have a drink containing alc ohol? Monthly or less 12/28/2023 Q2: How many drinks containi ng alcohol do you have on a typical day when you are drinking? 1 or 2 12/28/2023 Q3: How often do you have si x or more drinks on one occasion? Less than monthly 12/28/2023 PHQ-2 Answer Date Recorded PHQ-2 Total Score (If total score is 3 or more points, staff should administer the PHQ-9) 0 12/28/2023 PHQ-9 Answer Date Recorded PHQ-9 Total Score 0 12/28/2023 Personal Safety Answer Date Recorded Getting School Help Needed Not on file 09/10 Comments No Sex and Gender Information Value Date Recorded Sex Assigned at Not on file Legal Sex Female 12:20 PM CDT Gender Identity Not on file Sexual Orientation Not on file Last Filed Vital Signs Vital Sign Reading Time Taken Comments Blood Pressure 110/68 12/28/2023 2:06 PM CDT Pulse 81 12/28/2023 2:06 PM CDT Temperature 36.8 C (98.2 F) 12/28/2023 2:06 PM CDT Respiratory Rate 16 12/28/2023 2:06 PM CDT Oxygen Saturation 96% 12/28/2023 2:06 PM CDT Inhaled Oxygen Concentration - - Weight 77.3 kg (170 lb 6.4 oz) 12/28/2023 2:06 P M CDT Height 157.5 cm (5' 2) 12/28/2023 2:06 PM CDT Body Mass Index 31.17 12/28/2023 2:06 PM CDT Plan of Treatment Not on file Procedures Procedure Name Priority Date/Time Associated Diagnosis Comments PAP SMEAR Routine 02/02/2024 2:23 PM CDT from Last 3 Months or Most Recently Relevant to Health Maintenance Results * PAP SMEAR (02/02/2024 2:23 PM CDT) SCRIBED Pap test normal Historical Provider HEALTH MAINTENANCE Final Result from Last 3 Months or Most Recently Relevant to Health Maintenance Insurance [facility] Care Teams Electrical Lineworker Relationship Specialty Start Date End Date Muriel Daniel MD PCP - General Family Medicine 12/28/23 Saul Magallon MD [id number] [facility] [address] [place] [address] Referring Physician Obstetrics and Gynecology 12/27/21
--- OUTSIDE RECORDS SUMMARY | 2024-11-27 13:24 | XMS_ITS | Clinical Summary ---
Author Organization [facility] Address [address] [place] [address] Care Team Providers Care Hot End Operator Name Role Phone uMriel Daniel MD Primary Care Provider Saul Magallon MD Unavailable [phone] Allergies No known active allergies Medications No known medications Active Problems Problem Noted Date Diagnosed Date Hepatitis B immune 12/28/2023 Class 1 obesity due to exces s calories with serious comorbidity and body mass index (BMI) of 31.0 to 31.9 in adult 12/28/2023 Immunizations Immunization Administration Dates Next Due Influenza, Unspecified 06/12/2023(Deferr ed: Patient Refused),06/12/2022(Deferred: Patient Refused) Tdap 05/31/2023,03/12/2020 Surgical History Surgery Date Site/Laterality Comments NO PAST SURGERIES Medical History Medical History Date Comments Fibroids Family History Medical History Relation Name Comments No Known Problems Brother No Known Problems Father Diabetes type II Mother Fibroids Mother Hypertension Mother Hypertension Mother's Sister No Known Problems Sister Breast cancer Neg Hx Colon cancer Neg Hx Ovarian cancer Neg Hx Relation Name Status Comments Brother Alive Father Alive Maternal Grandfather Maternal Grandmother Mother Alive Mother's Sister Alive Paternal Grandfather Paternal Grandmother Alive Sister Alive Son Alive Social History Tobacco Use Types Packs/Day Years [...] on file Sexual Orientation Not on file Obstetrics History Last Filed Vital Signs Vital Sign Reading [...] 12/28/2023 2:06 PM CDT Plan of Treatment Health Maintenance Due Date Last Done Comments Hepatitis C Screening 1990 Varicella Vaccines (1 of 2 - 13+ 2-dose series) 2001 Covid-19 Vaccine ( - 2023-2 5 season) 2024 01/20/2021, 12/30/2020 Depression Screening 12/27/2024 12/28/2023, 12/28/2023 Regular Well Visit/Exam 18-64 12/27/2024 12/28/2023 Cervical Cancer Screening 02/01/2025 02/02/2024 Influenza Vaccine (Season Ended) 2025 DTaP/Tdap/Td Vaccine (3 - Td or Tdap) 05/31/2033 05/31/2023, 03/12/2020 Hepatitis B Screening Completed 05/19/2023 HPV Vaccines Aged Out No longer eligi ble based on patient's age to complete this topic Pneumococcal vaccine <65 Aged Out No longer eligible based on patient's age to complete this topic Procedures Procedure Name Priority Date/Time Associated Diagnosis Comments PAP SMEAR Routine 02/02/2024 2:23 PM CDT from Last 3 Months or Most Recently Relevant to Health Maintenance Results * HM PAP SMEAR (02/02/2024 2:23 PM CDT) SCRIBED Pap test normal us Historical Provider HEALTH MAINTENANCE Final Result from Last 3 Months or Most Recently Relevant to Health Maintenance Insurance [facility] Care Teams Hot End Operator Relationship Specialty Start Date End Date Muriel Daniel MD PCP - General Family Medicine 12/28/23 Saul Magallon MD [address] [place] [address] Referring Physician Obstetrics and Gynecology 12/27/21
--- OUTSIDE RECORDS SUMMARY | 2024-11-27 13:24 | XMS_ITS | Clinical Summary ---
Author Organization [facility] Address [address] [place] [address] Phone Care Team Providers Care Learning And Development Specialist Name Role Phone Unavailable Primary Care Provider Unavailabl e Encounters Date Type Department Care Team Description 11/05/2024 External Device Data STL ABSTRACTION Provider, Abstract 10/30/2024 External Device Data STL ABSTRACTION Provider, Abstract 10/29/2024 External Device Data STL ABSTRACTION Provider, Abstract 09/24/2024 External Device Data STL ABSTRACTION Provider, Abstract 08/29/2024 1:38 PM CDT - 08/29/2024 11:59 PM CDT Hospital Encounter [facility] Maternal and Health [facility] Alphonse Mathew [address] [place] [address] Ktalyn Herman MD Discharge Disposition: Home or Self Care 08/28/2024 External Device Data STL ABSTRACTION Provider, Abstract 08/28/2024 External Device Data STL ABSTRACTION Provider, Abstract from Last 3 Months Social History Tobacco Use Types Packs/Day Years Used Date Smoking Tobacco: Never Assessed Comments Unknown Sex and Gender Information Value Date Recorded Sex Assigned at Not on file Legal Sex Female 7:38 AM CDT Gender Identity Not on file Sexual Orientation Not on file Plan of Treatment Health Maintenance Due Date Last Done Comments Pre-Diabetes and Diabetes Screening 1990 HEPATITIS B VACCINES (1 of 3 - 19+ 3-dose series) 09/16/2007 HPV/Cotest (21-29) 2009 CERVICAL CANCER SCREENING 2018 HPV/Cotest (30-65) 2018 PAP SMEAR 2018 INFLUENZA VACCINE (#1) 2024 DTAP/TDAP/TD VACCINES (3 - Td or Tdap) 05/31/2033 05/31/2023, 03/12/2020 HPV VACCINES Aged Out No longer bentleymicheal lukas based on patient's age to complete this topic Procedures Procedure Name Priority Date/Time Associated Diagnosis Comments US OB FOLLOW UP + TV Routine 08/29/2024 2:29 PM CDT Advanced maternal age in multigravida, second trimester screening for malformation using ultrasonics from Last 3 Months Results * US OB FOLLOW UP + TV (08/29/2024 2:29 PM CDT) Anatomical Region Laterality Modality Pelvis Ultrasound 08/29/2024 2:01 PM CDT Narrative 08/29/2024 2:42 PM CDT STL FOLLOW UP ----- Pat. Name: CHINYERE DEAN Study Date: 08/29/2024 2:01pm Pat. NO: [id number] Referring MD: REBECCA WILD MD Site: [facility] Maid: Kamla Clements RDMS : 1990 Age: 33 ----- INDICATION ----- Maternal Obesity (BMI<40) Complicating Screening Follow-Up profile, 4ch CODING ----- Diagnoses Z3A.25: Weeks of gestation O99.212: Obesity complicating Z36.3: Encounter for screening for malformations Procedures 01045: Ultrasound, uterus, real time with image documentation 85375: Ultrasound, uterus, real time with image documentation, follow up, transabdominal approach per fetus HISTORY ----- OB History 1. Para 0 METHOD ----- Transabdominal and transvaginal ultrasound examination ----- Joel . Number of fetuses: 1 DATING ----- GA by prior assessment 25 w + 5 d ISSA by prior assessment: 12/07/2024 Ultrasound examination on: 08/29/2024 GA by U/S based upon: AC, BPD, EFW, Femur, HC GA by U/S 25 w + 6 d ISSA by U/S: 12/06/2024 Method of dating: Restore dating from previous exam Assigned: based on stated ISSA, selected on 08/01/2024 Assigned GA 25 w + 5 d Assigned ISSA: 12/07/2024 BIOMETRY ----- BPD 62.2 mm 25w 2d 25% Hadlock OFD 89.8 mm 29w 0d >99% Katharine HC 243.6 mm 26w 3d 52% Hadlock AC 207.9 mm 25w 2d 30% Hadlock Femur 48.9 mm 26w 3d 59% Hadlock HC / AC 1.17 78% Nicolaides Weight Calculation: EFW 860 g 25w 4d 44% Hadlock EFW (lb,oz) 1 lb 14 oz EFW by Hadlock ([id number]) Head / Face / Neck Biometry: Dumbwaiter Operator 3.3 mm Extremities / Bony Struc Biometry: FL / BPD 0.79 FL / HC 0.20 FL / AC 0.24 GENERAL EVALUATION ----- Cardiac activity present. FHR 144 bpm. movements: present. Presentation: cephalic Placenta: Placental site: posterior Umbilical cord: Cord vessels: 3 vessel cord. Insertion site: placental insertion: normal Amniotic fluid: Amount of AF: normal amount. MVP 5.3 cm. THEO 14.9 cm. Q1 4.1 cm, Q2 3.6 cm, Q3 5.3 cm, Q4 1.9 cm MATERNAL STRUCTURES ----- Cervix Normal Approach - Transvaginal ANATOMY ----- The following structures appear normal: Head / Neck Cranium. Lateral ventricles. Cavum septi pellucidi. Face Profile. Heart / Thorax 4-chamber view. Diaphragm. Abdomen Stomach. Kidneys. Bladder. sex: female. GROWTH OVERVIEW ----- Exam date GA BPD (mm) HC (mm) AC (mm) FL (mm) HL (mm) EFW (g) 08/01/2024 21w 5d 50.8 35% 197.7 49% 170.8 54% 37.3 46% 35.1 61% 464 56% 08/29/2024 25w 5d 62.2 25% 243.6 52% 207.9 30% 48.9 59% 860 44% COMMENT ----- Patient's name and date of were verified by the mechanical maintenance engineer prior to the exam. 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 IMPRESSION ----- Viable at 25 weeks gestation. Follow-up ultrasound was scheduled to complete the anatomic survey and assess placental location. complicated by maternal obesity. The biometry is consistent with the established gestational age Normal growth with estimated weight at the 44th percentile No structural malformations or markers of aneuploidy were identified Anatomic survey was completed Amniotic fluid volume is normal Posterior placenta with normal placental cord insertion Transvaginal ultrasound performed. Placenta is not low-lying. Inferior edge of placenta is more than 2 cm from the internal cervical os. Normal cervical length Ultrasound cannot identify all structural malformations nor exclude a diagnosis of aneuploidy. Recommend a follow-up ultrasound at 32 to 36 weeks gestation to assess growth and development Procedure Note Tony Myles MD - 08/29/2024 STL FOLLOW UP ----- Pat. Name:Orlando DEAN Date:08/29/2024 2:01pm Pat. NO: [id number] :REBECCA WILD MD [facility]:Kamla Clements RDMS :1990Age:33 ----- INDICATION ----- Maternal Obesity (BMI<40) Complicating Screening Follow-Up profile, 4ch CODING ----- Diagnoses Z3A.25: Weeks of gestation O99.212: Obesity complicating Z36.3: Encounter for screening formalformations Procedures 36418: Ultrasound, uterus, real time withimage documentation 97269: Ultrasound, uterus, real time withimage documentation, follow up, transabdominal approach per fetus HISTORY ----- OB History 1. Para 0 METHOD ----- Transabdominal and transvaginal ultrasound examination ----- Joel . Number of fetuses: 1 DATING ----- GA by prior [id number] w + 5 d ISSA by prior assessment:12/07/2024 Ultrasound examination on:08/29/2024 GA by U/S based upon:AC, BPD, EFW, Femur, HC GA by U/S25 w + 6 d ISSA by U/S:12/06/2024 Method of dating:Restore dating from previous exam Assigned:based on stated ISSA, selected on 08/01/2024 Assigned GA25 w + 5 d Assigned ISSA:12/07/2024 BIOMETRY ----- BPD 62.2 mm 25w 2d 25%Hadlock OFD 89.8 mm 29w 0d >99%Katharine HC 243.6 mm 26w 3d 52%Hadlock AC 207.9 mm 25w 2d 30%Hadlock Femur 48.9 mm 26w 3d 59%Hadlock HC / AC 1.17 78%Nicolaides Weight Calculation: EFW 860 g 25w 4d 44%Hadlock EFW (lb,oz) 1 lb 14 oz EFW by Hadlock ([id number]) Head / Face / Neck Biometry: Dumbwaiter Operator 3.3mm Extremities / Bony Struc Biometry: FL / BPD 0.79 FL / HC 0.20 FL / AC 0.24 GENERAL EVALUATION ----- Cardiac activity present. FHR 144 bpm. movements: present.Presentation: cephalic Placenta: Placental site: posterior Umbilical cord: Cord vessels: 3 vessel cord. Insertion site: placentalinsertion: normal Amniotic fluid: Amount of AF: normal amount. MVP 5.3 cm. THEO 14.9 cm. Q14.1 cm, Q2 3.6 cm, Q3 5.3 cm, Q4 1.9 cm MATERNAL STRUCTURES ----- Cervix Normal Approach - Transvaginal ANATOMY ----- The following structures appear normal: Head / Neck Cranium. Lateral ventricles. Cavum septipellucidi. Face Profile. Heart / Thorax 4-chamber view. Diaphragm. Abdomen Stomach. Kidneys. Bladder. sex: female. GROWTH OVERVIEW ----- Exam date GA BPD (mm) HC (mm) AC (mm) FL(mm) HL (mm) EFW (g) 08/01/2024 21w 5d 50.8 35% 197.7 49% 170.8 54%37.3 46% 35.1 61% 464 56% 08/29/2024 25w 5d 62.2 25% 243.6 52% 207.9 30%48.9 59% 860 44% COMMENT ----- Patient's name and date of were verified by the mechanical maintenance engineer prior tothe exam. was present for the transvaginal ultrasound and served as achaperone. IMPRESSION ----- Viable at 25 weeks gestation. Follow-up ultrasound was scheduledto complete the anatomic survey and assess placental location. complicated by maternal obesity. The biometry is consistent with the established gestational age Normal growth with estimated weight at the 44th percentile No structural malformations or markers of aneuploidy wereidentified Anatomic survey was completed Amniotic fluid volume is normal Posterior placenta with normal placental cord insertion Transvaginal ultrasound performed. Placenta is not low-lying. Inferioredge of placenta is more than 2 cm from the internal cervical os. Normal cervical length Ultrasound cannot identify all structural malformations nor exclude adiagnosis of aneuploidy. Recommend a follow-up ultrasound at 32 to 36 weeks gestation to assessfetal growth and development us Katlyn Herman MD US ORDERABLES Final Result from Last 3 Months Insurance [place]ICAID [place] Member Subscriber Plan / Payer ( fective 2024-Present) Name:Jermaine Chinyere Gutierrez Aba Relation to Subscriber:Self Name:Chinyere Dean Brenda Pedro Payer ID:Not on file Group ID:Not on file Type:Medicaid Address: [address] OUT OF STATE
[2024-11-27] MEDS: LACTATED RINGERS 1,000 ML 125 ML IV CONT ×2 (14:40→18:30)
[2024-11-27] MEDS: OXYTOCIN 30 UNITS/NS 500 ML 30 UNITS/500 ML BAG IV CONT (14:40)
--- NOTE | 2024-11-27 17:45 | P.PNAN_ITS ---
Anes - Eval Pre Procedure Procedure: labor epidural Date/Time: 11/27/24 17:45 Surgeon: maximiliano Preop Diagnosis: pain during labor Pre Op Diagnosis: LABOR Patient Data Age: 34 Gender: F Height: 1.57 m Weight: 100 kg Last Vital Signs Temp 36.6 C 11/27/24 16:52 Pulse 98 11/27/24 17:00 Resp 16 11/27/24 14:40 BP 147/92 H 11/27/24 17:00 O2 Del Method Room Air 11/27/24 12:33 Allergies Allergy/AdvReac Type Severity Reaction Status Date / Time shellfish derived AdvReac Gastrointestinal Verified 11/26/24 13:56 Upset Home Medications ?Medication ?Instructions ?Recorded ?Confirmed ?Type vitamin#30 30 mg iron-10 cap PO 05/30/24 11/26/24 History mg iron-folic acid 1 mg-omg3 capsule Laboratory Tests 11/27/24 11/27/24 11:46 12:33 WBC 8.2 K/mm3 (4.5-10.0) RBC 4.02 L M/mm3 (4.2-5.4) Hgb 10.7 L g/dL (12.0-15.0) Hct 34.2 L % (37.0-47.0) MCV 85.1 fl (80-100) MCH 26.6 pg (26-34) MCHC 31.3 L g/dl (32-36) RDW 15.6 H % (11.5-14.5) Plt Count 284 k/mm3 (150-375) MPV 10.0 fl (7.4-10.4) Immature Gran % (Auto) 0.7 H % (0-0.5) Neut % (Auto) 73.6 H % (45.5-73.1) Lymph % (Auto) 20.4 % (18.3-44.2) Starke % (Auto) 4.4 % (2.6-8.5) Eos % (Auto) 0.5 % (0-4.4) Baso % (Auto) 0.4 % (0.2-1.2) Lymph # (Auto) 1.66 K/mm3 (0.9-3.2) Starke # (Auto) 0.4 K/mm3 (0.1-0.6) Eos # (Auto) 0.0 K/mm3 (0-0.3) Baso # (Auto) 0.0 K/mm3 (0.0-0.1) Abs Immat Gran (auto) 0.06 H K/mm3 (0.00-0.031) Absolute Neuts (auto) 6.0 K/mm3 (1.3-6.7) Absolute Nucleated RBC 0.000 K/mm3 (0.0-0.012) Nucleated RBC % 0.0 % (0.0-0.2) Membranes Rupture Rom plus positive (Negative) Syphilis IgG/IgM Ab Non-reactive (Nonreactive) Blood Type O Positive Antibody Screen Negative Patient hx anesthesia problems: none Family hx anesthesia problems: none Results Review: All pre-operative results and documents have been reviewed as part of the pre- operative evaluation. [facility] Past Medical History Medical History (Updated 11/27/24 @ 17:46 by Tierney Sotomayor CRNA) IUP (intrauterine ), incidental Fibroid Obesity Family History Family History Sibling Alcoholism Mother Diabetes mellitus Hypertension Social History Social History Smoking status: Never smoker Alcohol intake: never Alcohol use details: Not since Substance use: never Do You Feel Safe in your Home?: Yes Lack of Transportation: No Lack of Food: Never True Current Housing: I Have Housing Concerned About Future Housing: No Difficulty Paying Gas/Electric Bills: No Difficulty Paying for Meds: No Currently Unemployed: No Education: Master's Degree or Higher Difficulty w/ Childcare or Family Care: No Living arrangements: with family Occupation/Education: occupation Gender identity (if verbalized by the patient): Female Sexual Orientation (if Verbalized by the Patient): Straight or Heterosexual Spiritual care concerns: No Agree to blood products: Yes Exam Day of Procedure 11/27/24 17:45
[2024-11-27] MEDS: OXYTOCIN 30 UNITS/NS 500 ML 30 UNITS/500 ML BAG 999 UNITS IV CONT (21:18)
--- NOTE | 2024-11-27 21:31 | PM.OBPRVD ---
OB - Vaginal Delivery Note Procedure Delivery date: 11/27/24 Delivery augmentation: Pitocin Delivery monitor: External FHT Route of delivery: Episiotomy description: None Laceration Description: Perineal - 1st Degree Specimen: No Quantitative Blood Loss (ml): 250 Anesthesia type: Epidural Disposition: Floor Complications: No immediate complications Narrative: She was admitted with SROM. She had pitocin augmentation. She had epidural placed on request. She dilated to active labor. She dilated to complete and delivered a female vaginally. Nose mouth suctioned at perineum. [place] Baby Date of : 11/27/24 Time of : 21:15 Gestational Age by Date: 38 gender: Female presentation: vertex position: Right Occiput Anterior Placenta delivery description: Spontaneous Cord Vessel Description: 3 Vessels, True Knot (loose) and Delayed Cord Clamping score one minute: 9 score five minutes: 9
[2024-11-27] MEDS: OXYTOCIN 30 UNITS/NS 500 ML 30 UNITS/500 ML BAG 125 UNITS IV CONT (21:49)
[2024-11-27] MEDS: IBUPROFEN 600 MG TABLET PO (22:25)
[2024-11-28 01:10] VITALS: BP 142/90; PULSE 84; RESP 16; TEMP 36.6; O2SAT 99
[2024-11-28] MEDS: ACETAMINOPHEN 325 MG TABLET 650 MG PO (01:30)
[2024-11-28 05:03] VITALS: BP 113/72; PULSE 86; RESP 16; TEMP 36.4; O2SAT 100
[2024-11-28 05:59] LABS: Hematocrit 29.3 % (37.0-47.0); Hemoglobin 9.1 g/dL (12.0-15.0)
--- NOTE | 2024-11-28 07:26 | WPDANLDPN2 ---
Anes-Prog Note L&D Date/Time: 11/28/24 07:26 Comfortable throughout: labor and delivery (felt vaginal pressure with delivery) Neuraxial method: epidural Epidural/Spinal procedure site: clean & non-tender Neuro status: Neuro function grossly intact. Cardiovascular status: normal Respiratory status: normal Airway patency: baseline Mental status: baseline Post-Op hydration status: normal Vital Signs: Last Vital Signs Temp 36.4 C L 11/28/24 05:03 Pulse 86 11/28/24 05:03 Resp 16 11/28/24 05:03 BP 113/72 11/28/24 05:03 Pulse Ox 100 11/28/24 05:03 O2 Del Method Room Air 11/27/24 12:33 Pain score (VAS): 06/21 I/O: Intake & Output 11/27/24 11/27/24 11/28/24 15:59 23:59 07:59 Intake Total 1000 440 Output Total 250 110 Balance 750 330 Post-procedural complaints: none Patient feedback: Patient satisfied with anesthetic care.
[2024-11-28] MEDS: MULTIVIT/MIN/PREN/FOL AC/IRON TABLET 1 TAB PO (07:40)
[2024-11-28] MEDS: DOCUSATE SODIUM 100 MG CAPSULE PO (07:40)
[2024-11-28] MEDS: IBUPROFEN 600 MG TABLET PO ×2 (07:40→20:08)
[2024-11-28] MEDS: POLYSACCHARIDE IRON COMPLEX 150 MG CAPSULE PO ×2 (07:40→17:54)
[2024-11-28 08:30] VITALS: BP 113/76; PULSE 99; RESP 16; TEMP 36.5; O2SAT 100
--- NOTE | 2024-11-28 12:15 | PC.NURSE ---
Introductions were made, then consulted with patient to assess needs related to . Discussed with mother her?plans to feed?her and the?experience so far. Per mother she wants to use the hospital breast pump while she is here, she has been attempting at the breast but not having much success and been giving formula bottles when baby does not latch. Mother has 2 of her own breast pumps at home that she will use but did not bring here to the hospital. CLC RN brought in the hospital breast pump and instructions given on cleaning, care, usage, that there should be no pain, pumping schedule for milk production, collection, and storage of human milk. Patient was assessed for correct placement, flange size (both nipples are 20mm and will use a size 24 flange), to pump for comfort and nipple stretching/stimulation for adequate milk production every 3 hours (8 times in 24 hours) 1-2 times at night. Parents are encouraged to record the pumping schedule on the feeding sheet.?Resources provided for inpatient and outpatient services with the feeding sheet, mom/baby guide and name written on the communication board. Mother voiced understanding of the education shared along with mom/baby guide and the pump measurement, flange fit handout for additional resource information. Reported to the Primary RN.
[2024-11-28 12:59] VITALS: BP 128/89; PULSE 97; RESP 16; TEMP 36.6; O2SAT 100
--- NOTE | 2024-11-28 16:39 | PM.OBDSVD ---
DS: Admitting Diagnosis Discharge Date 11/28/24 Admitting Diagnosis spontaneous rupture of membranes DS: Discharge Diagnosis Discharge Diagnosis (1) Vaginal delivery: Code(s): O80 - Encounter for full-term uncomplicated delivery Status: Acute OB - DS: Summary Hospital Course Hospital Course: she was admitted for spontaneous rupture of membranes. She had Pitocin augmentation. She progressed to active labor. She had uncomplicated vaginal delivery. She did well . Baby did well . She had adequate pain control was ambulating well and lochia was decreasing was discharged home on day 2. OB Procedures : Ultrasound OB Procedures Intrapartum: Spontaneous Vag Delivery OB Procedures: : None Peripartum Data Infant Delivery Method: Natural Vaginal Laceration Description: Perineal - 1st Degree Episiotomy description: None complications: none Status at Discharge Functional status at discharge: independent ambulation Time Spent with Patient Time attestation: Total time spent providing and/or coordinating discharge services: Exam Const: General: cooperative Orientation/consciousness: oriented to person, oriented to place and oriented to time HENMT: Face/Nose/Sinus: Normal external nose present Eyes: General: appearance normal, both eyes and all related structures Resp: Effort & Inspection: normal respiratory effort GI: Inspection: normal to inspection Skin: General skin exam: normal color Neuro: General: oriented to person, oriented to place and oriented to time Extrem: General: normal to inspection and no calf tenderness Psych: Appearance: grossly normal Mental Status: mental status grossly normal DS: Data Data Completed and Pending Labs on day of discharge: Labs from last 24 hours 11/28/24 04:45 Hgb 9.1 L Hct 29.3 L Discharge Plan Discharge Attending physician on discharge: Saul Magallon Consulting providers: Tierney Sotomayor Discharging Clinician: Saul Magallon Patient Disposition: Home Activity: may shower and pelvic rest Diet: regular Discharge Instructions: Education: Mom and Baby Guide Given to: Mother Follow-Up: Call your delivering provider's office for an appointment to be seen in: Call for appointment Mom and baby should come to the [facility] for the follow-up appointment. Appointment Date/Time: November 30, 2024 at 3:30 pm What to expect at your follow-up visit: Blood Pressure Check Physical Assessment Call [phone] if you are unable to keep your appointment time. BREAST CARE: * Wear a snug supportive bra. * For engorgement discomfort: Breast Feeding: * Apply warm moist washcloths * Express milk as needed to relieve engorgement * Wear loose clothing Bottle Feeding: * May apply ice packs * For sore nipples: * Identify correct latch-on * Apply warm moist washcloths before and after nursing * Air dry nipples after nursing * May apply Lansinoh cream to nipples PERINEAL CARE: * Until bleeding stops, use your alyse bottle after urinating * Change your pad frequently throughout the day * You may take sitz baths several times a day (fill your bathtub with warm water and soak for 20 minutes.) Do NOT bathe in the water * No tub baths until seen by your physician - You may shower ACTIVITY: * Rest as much as possible. * Do not exercise or lift anything heavier than your baby (such as laundry or other children.) * Avoid stairs or driving as much as possible. * Do not put anything into the vagina. No douching, tampons, or sexual activity until seen by physician. NOTIFY PHYSICIAN IF YOU HAVE ANY QUESTIONS OR IF ANY OF THE FOLLOWING SYMPTOMS OCCUR: * If your vaginal bleeding becomes foul smelling. * If your vaginal bleeding becomes more heavy than a period or if your bleeding changes from pink to bright red. However, you may pass an occasional walnut-sized clot once or twice for the first week . * If you experience a sharp, shooting pain in your calves. * If you discover a hard, reddened area on your breast or if you experience flu-like symptoms. DIET: * Eat regular, well-balanced meals. * Drink plenty of fluids daily. If , drink to thirst. Patient Language: [place] Citizen Stand Alone Forms: General Discharge Information Follow-up/Referrals: Saul Magallon MD [Physician] - Call for Appointment Discharge Medications: Continued PNV #[id number] acid-omega3 30 mg iron-10 mg iron-1 mg capsule PO Date of admission: 11/27/24 11:15 Primary Care Provider: PHYSICIAN,PUBLIC INFORMATION SPECIALIST Admitting Provider: Saul Magallon Attending physician on admission: Saul Magallon Condition: Stable
--- NOTE | 2024-11-28 16:43 | P.PNOB_ITS ---
OB - PN: Subj Subjective Date/time seen: 11/28/24 16:43 Patient comments: pain well controlled, tolerating diet and other (Decreasing lochia.) baby status: doing well and nursing well OB - PN: Obj Data Labs 11/28/24 04:45 Labs: Laboratory Results - last 24 hr 11/28/24 04:45 Hgb 9.1 L Hct 29.3 L OB - PN A/P Assessment and Plan (1) Vaginal delivery: Code(s): O80 - Encounter for full-term uncomplicated delivery Status: Acute Plan day: 1 Plan: routine care Comments: Patient doing well. Time Spent With Patient Time: Total time spent is greater than 50% in coordination of care (as documented) at patient's floor/unit and/or counseling patient: Exam 2 Psych: Affect: normal affect Other: Abd: fundus firm below umbilicus, nontender Perineum: healing Ext: nontender
[2024-11-28 20:00] VITALS: BP 146/98; PULSE 95; RESP 18; TEMP 36.5; O2SAT 100
[2024-11-29 01:44] VITALS: BP 118/93
[2024-11-29 07:45] VITALS: BP 111/74; PULSE 80; RESP 18; TEMP 36.9; O2SAT 99
--- NOTE | 2024-11-29 07:53 | P.PNOB_ITS ---
OB - PN: Subj Subjective Date/time seen: 11/29/24 07:53 Patient comments: no complaints, pain well controlled, tolerating diet, flatus present and other (Decreasing lochia.) [place] baby status: doing well and nursing well OB - PN: Obj Data Labs 11/28/24 04:45 OB - PN A/P Assessment and Plan (1) Vaginal delivery: Code(s): O80 - Encounter for full-term uncomplicated delivery Status: Acute Plan day: 2 Plan: discharge home Time Spent With Patient Time: Total time spent is greater than 50% in coordination of care (as documented) at patient's floor/unit and/or counseling patient: Exam 2 Psych: Affect: normal affect Other: Abd: fundus firm below umbilicus, nontender Perineum: healing Ext: nontender
[2024-11-29] MEDS: POLYSACCHARIDE IRON COMPLEX 150 MG CAPSULE PO (08:59)
[2024-11-29] MEDS: IBUPROFEN 600 MG TABLET PO (08:59)
[2024-11-29] MEDS: DOCUSATE SODIUM 100 MG CAPSULE PO (08:59)
[2024-11-29] MEDS: MULTIVIT/MIN/PREN/FOL AC/IRON TABLET 1 TAB PO (08:59)
[2024-11-30 16:03] VITALS: BP 132/69; PULSE 101; RESP 16; TEMP 37.1; O2SAT 100
== END 2024-11-29 16:47 | disposition home or self-care (01) | DRG 807 ==
LOC: ANHLDR 18:05 → ANHOB2 11-28 00:04
PROVIDERS: Admitting Provider Obstetrics & Gynecology; Visit Provider Obstetrics & Gynecology
DX: O69.81X0 Labor and delivery complicated by cord around neck, without compression, not applicable or unspecified (principal); Z37.0 Single live birth; Z3A.38 38 weeks gestation of pregnancy; O70.0 First degree perineal laceration during delivery
CPT/HCPCS: 36415; 84112; 85014; 85018; 85025; 86593; 86850; 86900; 86901; A9270; J2590; J2795; J7120